=== PATIENT | male | born 1985 ===

== ENCOUNTER 2024-05-05 01:45 | Day surgery (SDC) | payer OTHER, SELFPAY ==
[2024-04-29 14:42] VITALS: BMI 35.5
[2024-05-05 07:40] VITALS: BP 139/108; PULSE 85; RESP 16; TEMP 36.2; O2SAT 100; BMI 37.5
--- NOTE | 2024-05-05 07:59 | WPDANESEPPF ---
Anes - Initial Pre Proc Eval Procedure: Operation Date: 05/05/24 09:00 Proposed Procedures p Colonoscopy - Emeterio Kwong DO Date/Time: 05/05/24 07:59 Surgeon: Emeterio Kwong DO Pre Op Diagnosis: Intestinal inflammation Patient Data Age: 38 Gender: M Height: 1.91 m Weight: 129 kg Allergies Allergy/AdvReac Type Severity Reaction Status Date / Time No Known Allergies Allergy Verified 05/05/24 07:59 Home Medications Medication Instructions Recorded Confirmed Type acetaminophen 325 mg tablet 325 mg PO QID PRN Pain 04/28/24 05/05/24 History ibuprofen 800 mg tablet 800 mg PO TID PRN Pain 04/28/24 05/05/24 History ondansetron HCl 4 mg tablet 4 mg PO BID PRN Nausea And Vomiting 04/28/24 05/05/24 History sennosides 8.6 mg tablet (senna) 8.6 mg PO BID 04/28/24 05/05/24 History Patient hx anesthesia problems: none Family hx anesthesia problems: none Results Review: All pre-operative results and documents have been reviewed as part of the pre-operative evaluation. [facility] Social History Social History Years smoked: 5 Smoking status: Former smoker Tobacco type: cigarettes Alcohol intake: former Substance use: unknown Substance use type: marijuana and prescription drug Living arrangements: incarcerated Anes - Eval Final PreProcedure Day of Procedure 05/05/24 07:59 Patient weight: obese Heart: regular rate and rhythm Lungs: clear to auscultation and decreased breath sounds Airway: Mallampati scale class II Neurological: alert and oriented Last oral intake: >/= 8 hours ASA classification: II Emergent: no Anesthetic plan: proceed Anesthesia type and monitoring: general GIVS Results Review: All pre-operative results and documents have been reviewed as part of the pre-operative evaluation. Informed Consent: The patient's anesthetic plan and its attendant risks and benefits were discussed with the patient/family/POA. Questions were solicited and answers provided to the satisfaction of the patient/family/POA.
[2024-05-05] MEDS: LACTATED RINGERS 1,000 ML 150 ML IV CONT (08:21)
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
[2024-05-05 09:44] VITALS: BP 98/58; PULSE 68; RESP 15; O2SAT 95
[2024-05-05 09:54] VITALS: BP 114/67; PULSE 61; RESP 12; O2SAT 100
[2024-05-05 10:04] VITALS: BP 134/86; PULSE 81; RESP 23; O2SAT 100
== END 2024-05-05 10:16 ==
PROVIDERS: PCP Internal Medicine; Visit Provider Surgery
PROC: 0DJD8ZZ Inspection of Lower Intestinal Tract, Via Natural or Artificial Opening Endoscopic (ICD-10-PCS; CPT 45378; principal; 2024-05-05 09:00)
DX: R93.89 Abnormal findings on diagnostic imaging of other specified body structures (principal); K57.30 Diverticulosis of large intestine without perforation or abscess without bleeding; K52.9 Noninfective gastroenteritis and colitis, unspecified; F12.90 Cannabis use, unspecified, uncomplicated; E66.9 Obesity, unspecified; Z68.37 Body mass index [BMI] 37.0-37.9, adult; Z79.1 Long term (current) use of non-steroidal anti-inflammatories (NSAID); Z98.890 Other specified postprocedural states; Z87.828 Personal history of other (healed) physical injury and trauma; Z87.891 Personal history of nicotine dependence
CPT/HCPCS: 45378; J2704; J7120